=== PATIENT | female | born 1970 | race African-American/Black ===

== ENCOUNTER 2019-04-15 16:33 | Emergency (ER) | payer BC, MEDICAID ==
[~2019-04-15] VITALS: Ht 175.3 cm; Wt 135.7 kg
[~2019-04-15 16:33] MED LIST: ATIVAN; CYMBALTA
[2019-04-15 17:16] VITALS: BP 167/87
[2019-04-15] MEDS ORDERED: CEPH250C16 PO (17:22)
[2019-04-15] MEDS ORDERED: SULF-58 PO (17:22)
[2019-04-15] MEDS ORDERED: PHE25S PO (17:22)
--- NOTE | 2019-04-15 18:20 | NUR ---
PT AMB TO ER CHAIR C
--- NOTE | 2019-04-15 18:31 | NUR ---
Dr. Mendez is evaluating the patient.
[2019-04-15] MEDS ORDERED: VANCOMYCIN 1,000 MG in DEXTROSE 5% 250 ML IV ONE (18:40)
--- NOTE | 2019-04-15 19:17 | NUR ---
ASSESSMENT COMPLETED WITH PATIENT SITTING UP IN CHAIR. BIB SELF REPORTS RIGHT LOWER LEG WOUND AFTER CUTTING HER LEG ON 03-17-2019. STATES THE WOUND HAS JUST PROGRESSIVELY GOTTEN WORSE. PATIENT STATED SHE WAS SEEN AND GIVEN RX FOR TWO ABX BUT STATES SHE HASNT BEEN CONSISTENTLY TAKING THEM BECAUSE THEY WERE MAKING HER NAUSEOUS. WOUND SEEN ON RIGHT LOWER LEG, RED, WARM TO TOUCH. PATIENT REPORTS BURNING PAIN AND ITCHY. NO OTHER SYMPTOMS REPORTED. LUNGS CLEAR. ABD SOFT AND NON-TENDER.
[2019-04-15] MEDS ORDERED: VANCOMYCIN 1,000 MG VIAL ONE (19:49)
[2019-04-15 20:53] VITALS: BP 153/84
--- NOTE | 2019-04-15 20:53 | NUR ---
Patient discharged by Dr Mendez with v/s stable. Written and verbal after care instructions given and explained. Patient alert, oriented and verbalized understanding of instructions. Ambulatory with steady gait. All questions addressed prior to discharge. ID band removed. Patient advised to follow up with PMD. Rx of Promethazine and Keflex given. Patient educated on indication of medication including possible reaction and side effects. Opportunity to ask questions provided and answered.
[2019-04-15] MEDS ORDERED: KETOROLAC 30 MG/ML VIAL ONE (21:56)
== END 2019-04-15 20:53 | disposition home or self-care (01) ==
LOC: MED 16:33
DX: L97.819 Non-pressure chronic ulcer of other part of right lower leg with unspecified severity (principal); K21.9 Gastro-esophageal reflux disease without esophagitis; E66.9 Obesity, unspecified; Z90.49 Acquired absence of other specified parts of digestive tract; Z79.899 Other long term (current) drug therapy; Z68.41 Body mass index [BMI] 40.0-44.9, adult; Z98.890 Other specified postprocedural states
CPT/HCPCS: 36415; 73060; 87040; 96365; 99284; J1885; J3370; Q0092

== ENCOUNTER 2019-05-22 22:25 | Emergency (ER) | payer MEDICAID ==
[~2019-05-22] VITALS: Ht 175.3 cm; Wt 125.4 kg
[~2019-05-22 22:25] MED LIST changes: -ATIVAN; +CEPH250C16 PO; -CYMBALTA; +PHE25S PO; +SULF-58 PO
[2019-05-22 22:31] VITALS: BP 150/78
--- NOTE | 2019-05-22 22:44 | NUR ---
EKG PERFORMED IN TRIAGE ROOM WITH FAMILY MEMBER PRESENT
--- NOTE | 2019-05-22 23:12 | NUR ---
49 YO FEMALE CO LOWER ABD PAIN THAT RADIATES TO LOWER BACK SINCE TODAT 12/16. PT ALSO HAS PAIN IN THE CENTER OF CHEST THAT DOES NOT RADIATE. EKG WAS NSR. VSS STABLE. BS ACTIVE IN ALL 4 QUADS. HEART SOUNDS NORAMAL WITH NO ABNORMAL HEART SOUNDS.
[2019-05-22] MEDS ORDERED: DICYCLOMINE HCL LIQUID 20 MG, ALUMINUM HYD/MAG/SIMETHICONE 30 ML, LIDOCAINE VISCOUS 2% ... PO ONE ×3 (23:20)
[2019-05-22] MEDS ORDERED: NACL 0.9% 1,000 ML IV ONE (23:20)
[2019-05-22] MEDS ORDERED: LIDOCAINE VISCOUS 2% 20 ML UDC ONE (23:23)
[2019-05-22] MEDS ORDERED: ALUMINUM HYD/MAG/SIMETHICONE 30 ML UDC ONE ×2 (23:23→23:24)
[2019-05-22] MEDS ORDERED: DICYCLOMINE HCL LIQUID 10 MG/5 ML UDC ONE ×2 (23:23→23:24)
[2019-05-22 23:35] LABS: BASOPHILS % (AUTO) 0.3 % (0.0-2.0); EOSINOPHILS # (AUTO) 0.1 K/uL (0-0.4); EOSINOPHILS % (AUTO) 0.9 % (0.0-4.0); HEMATOCRIT 35.2 % (36-48); HEMOGLOBIN 11.2 g/dL (12.0-16.0); LYMPHOCYTES # (AUTO) 2.7 K/uL (2.5-16.5); LYMPHOCYTES % (AUTO) 26.2 % (20.5-51.1); MEAN CORPUSCULAR HEMOGLOBIN 25 pg (27-31); MEAN CORPUSCULAR HGB CONC 32 g/dL (33-37); MEAN CORPUSCULAR VOLUME 78.2 fL (80-94); MONOCYTES # (AUTO) 0.8 K/uL (0.8-1.0); MONOCYTES % (AUTO) 7.7 % (1.7-9.3); NEUTROPHILS # (AUTO) 6.6 K/uL (1.8-7.7); NEUTROPHILS % (AUTO) 64.9 % (42.2-75.2); PLATELET COUNT (AUTO) 435 K/uL (140-450); RED CELL DISTRIBUTION WIDTH 16.5 % (11.6-13.7); WHITE BLOOD COUNT (AUTO) 10.1 K/uL (4.8-10.8)
[2019-05-22 23:52] LABS: ALBUMIN 3.8 g/dL (3.4-5.0); ANION GAP 14.6 (8-16); CARBON DIOXIDE 25.7 mmol/L (21-32); POTASSIUM 3.3 mmol/L (3.5-5.1); TOTAL BILIRUBIN 0.3 mg/dL (0.0-1.0)
[2019-05-22 23:59] LABS: PROTHROMBIN TIME 10.4 secs (10.8-13.4)
--- NOTE | 2019-05-23 01:50 | NUR ---
PT LAYING IN BED COMFORTABLE AT THIS TIME. PT IS AWAKE AND ALERT. PAIN IS NOW 5/10. VSS.
--- NOTE | 2019-05-23 02:52 | NUR ---
PT ASLEEP IN BED. AROUSEABLE TO NAME. VSS. WILL CONTINUE TO MONITOR
[2019-05-23 04:38] VITALS: BP 150/78
--- NOTE | 2019-05-23 04:39 | NUR ---
Patient discharged with v/s stable. Written and verbal after care instructions given and explained. Patient alert, oriented and verbalized understanding of instructions. Ambulatory with steady gait. All questions addressed prior to discharge. ID band removed. Patient advised to follow up with PMD. Rx of TRAMADO AND ZOFRAN given. Patient educated on indication of medication including possible reaction and side effects. Opportunity to ask questions provided and answered.
[2019-05-24] MEDS ORDERED: OMEP40EC14 PO (23:15)
[2019-05-24] MEDS ORDERED: SERT100T PO (23:15)
[2019-05-24] MEDS ORDERED: QUET100T PO (23:15)
[2019-05-24] MEDS ORDERED: PHE25S PO (23:15)
== END 2019-05-23 04:38 | disposition home or self-care (01) ==
LOC: MED 22:25
DX: R10.30 Lower abdominal pain, unspecified (principal); R11.2 Nausea with vomiting, unspecified; K21.9 Gastro-esophageal reflux disease without esophagitis; Z79.899 Other long term (current) drug therapy
CPT/HCPCS: 36415; 71045; 74176; 80053; 81025; 83690; 83880; 84484; 85025; 85610; 85730; 87804; 93005; 96360; 96361; 99285; J7030; Q0092

== ENCOUNTER 2019-05-23 22:41 | Emergency (ER) | payer MEDICAID ==
[~2019-05-23] VITALS: Ht 175.3 cm; Wt 125.2 kg
[2019-05-23 22:51] VITALS: BP 148/81
[2019-05-23] MEDS ORDERED: NACL 0.9% 1,000 ML IV ONE (23:17)
[2019-05-23] MEDS ORDERED: MORPHINE SULFATE 10 MG/ML VIAL IVP ONE (23:20)
[2019-05-23] MEDS ORDERED: ONDANSETRON 4 MG/2 ML VIAL IVP ONE ×2 (23:20)
[2019-05-23 23:43] LABS: BASOPHILS % (AUTO) 0.4 % (0.0-2.0); EOSINOPHILS # (AUTO) 0.1 K/uL (0-0.4); EOSINOPHILS % (AUTO) 0.6 % (0.0-4.0); HEMATOCRIT 34.8 % (36-48); HEMOGLOBIN 11.2 g/dL (12.0-16.0); LYMPHOCYTES # (AUTO) 2.1 K/uL (2.5-16.5); LYMPHOCYTES % (AUTO) 20.8 % (20.5-51.1); MEAN CORPUSCULAR HEMOGLOBIN 25 pg (27-31); MEAN CORPUSCULAR HGB CONC 32 g/dL (33-37); MEAN CORPUSCULAR VOLUME 77.7 fL (80-94); MONOCYTES # (AUTO) 0.6 K/uL (0.8-1.0); MONOCYTES % (AUTO) 5.5 % (1.7-9.3); NEUTROPHILS # (AUTO) 7.3 K/uL (1.8-7.7); NEUTROPHILS % (AUTO) 72.7 % (42.2-75.2); PLATELET COUNT (AUTO) 418 K/uL (140-450); RED BLOOD CELL COUNT(AUTO) 4.48 MIL/uL (4.20-5.40); RED CELL DISTRIBUTION WIDTH 16.4 % (11.6-13.7); WHITE BLOOD COUNT (AUTO) 10.1 K/uL (4.8-10.8)
[2019-05-23] MEDS ORDERED: diphenhydrAMINE 50 MG/ML VIAL IVP ONE (23:50)
[2019-05-23] MEDS ORDERED: METOCLOPRAMIDE 10 MG/2 ML INJ VIAL IVP ONE (23:50)
[2019-05-24 00:19] LABS: ALBUMIN 3.8 g/dL (3.4-5.0); ANION GAP 17.5 (8-16); CARBON DIOXIDE 24.7 mmol/L (21-32); POTASSIUM 3.2 mmol/L (3.5-5.1); TOTAL BILIRUBIN 0.3 mg/dL (0.0-1.0)
[2019-05-24 00:22] LABS: CREATININE 0.9 mg/dL (0.6-1.3)
[2019-05-24 00:52] LABS: APPEARANCE,URINE SL CLOUDY (CLEAR); BILIRUBIN,URINE NEGATIVE (NEGATIVE); BLOOD, URINE NEGATIVE (NEGATIVE); COLOR,URINE YELLOW (YELLOW); LEUKOCYTE ESTERASE ,URINE NEGATIVE (NEGATIVE); NITRITE, URINE NEGATIVE (NEGATIVE); PH,URINE 8.5 (5.0-9.0); UGLUCOSE NEGATIVE (NEGATIVE)
[2019-05-24] MEDS ORDERED: POTASSIUM CHLORIDE 10 MEQ TABER PO ONE ×2 (02:35→02:57)
[2019-05-24 03:45] VITALS: BP 121/78
[2019-05-24] MEDS ORDERED: PHE25S PO (23:15)
[2019-05-24] MEDS ORDERED: QUET100T PO (23:15)
[2019-05-24] MEDS ORDERED: OMEP40EC14 PO (23:15)
[2019-05-24] MEDS ORDERED: SERT100T PO (23:15)
== END 2019-05-24 03:45 | disposition home or self-care (01) ==
LOC: MED 22:41
DX: R10.84 Generalized abdominal pain (principal); R11.2 Nausea with vomiting, unspecified; R19.7 Diarrhea, unspecified; M54.5 Low back pain; G21.9 Secondary parkinsonism, unspecified; Z90.49 Acquired absence of other specified parts of digestive tract; Z79.899 Other long term (current) drug therapy
CPT/HCPCS: 36415; 80053; 81003; 81025; 83690; 85025; 96361; 96374; 96375; 99284; J1200; J2270; J2765; J7030; 81002; J2405

== ENCOUNTER 2019-05-24 15:25 | Inpatient (IN) | payer MEDICAID ==
[~2019-05-24] VITALS: Ht 175.3 cm; Wt 58.1 kg
[2019-05-24 15:32] VITALS: BP 90/56
--- NOTE | 2019-05-24 15:45 | NUR ---
DR AJ EVALUATING PT AT BEDSIDE
--- NOTE | 2019-05-24 15:48 | NUR ---
49 Y/O FEMALE C/O ABD PAIN WITH N/V/D X 3 DAYS. PT STATES SHE HAS COME TO ER MULTIPLE DAYS IN A ROW FOR SAME REASON. 10/10 SHARP ABD PAIN. ABD SOFT, ROUND, AND TENDER TO PALPATION. STATES 7 EPISODES OF VOMITING AND 5 EPISODES OF DIARRHEA TODAY. DENIES FEVER AND URINARY SYMPTOMS. RR EVEN AND UNLABORED, PT TEARFUL IN BED
[2019-05-24] MEDS ORDERED: ONDANSETRON 4 MG/2 ML VIAL IVP ONE (15:50)
[2019-05-24] MEDS ORDERED: MORPHINE SULFATE 4 MG/ML SYR IVP ONE ×2 (15:50→16:45)
[2019-05-24] MEDS ORDERED: NACL 0.9% 1,000 ML IV ONE ×2 (15:50→18:05)
[2019-05-24] MEDS ORDERED: METOCLOPRAMIDE 10 MG/2 ML INJ VIAL IVP ONE ×2 (16:20→23:15)
[2019-05-24 16:27] LABS: BASOPHILS # (AUTO) 0.1 K/uL (0.00-0.22); BASOPHILS % (AUTO) 0.8 % (0.0-2.0); EOSINOPHILS % (AUTO) 0.2 % (0.0-4.0); HEMATOCRIT 34.8 % (36-48); LYMPHOCYTES # (AUTO) 1.4 K/uL (2.5-16.5); LYMPHOCYTES % (AUTO) 13.1 % (20.5-51.1); MEAN CORPUSCULAR HEMOGLOBIN 25 pg (27-31); MEAN CORPUSCULAR HGB CONC 32 g/dL (33-37); MEAN CORPUSCULAR VOLUME 77.7 fL (80-94); MONOCYTES # (AUTO) 0.4 K/uL (0.8-1.0); MONOCYTES % (AUTO) 4.2 % (1.7-9.3); NEUTROPHILS # (AUTO) 8.7 K/uL (1.8-7.7); NEUTROPHILS % (AUTO) 81.7 % (42.2-75.2); PLATELET COUNT (AUTO) 431 K/uL (140-450); RED BLOOD CELL COUNT(AUTO) 4.48 MIL/uL (4.20-5.40); RED CELL DISTRIBUTION WIDTH 16.7 % (11.6-13.7); WHITE BLOOD COUNT (AUTO) 10.6 K/uL (4.8-10.8)
[2019-05-24 16:30] LABS: APPEARANCE,URINE CLEAR (CLEAR); BILIRUBIN,URINE NEGATIVE (NEGATIVE); BLOOD, URINE NEGATIVE (NEGATIVE); COLOR,URINE YELLOW (YELLOW); LEUKOCYTE ESTERASE ,URINE NEGATIVE (NEGATIVE); NITRITE, URINE NEGATIVE (NEGATIVE); UGLUCOSE NEGATIVE (NEGATIVE)
[2019-05-24 16:39] LABS: BARBITURATE, URINE NEGATIVE ng/ml (NEG <=200); BENZODIAZEPINE, URINE NEGATIVE ng/mL (NEG <=200); CANNABINOID, URINE NEGATIVE ng/mL (NEG <=50); COCAINE, URINE NEGATIVE ng/mL (NEG <=300); PHENCYCLIDINE SCREEN,URINE NEGATIVE ng/mL (NEG <=25)
[2019-05-24 16:40] LABS: OPIATE, URINE POSITIVE ng/mL (NEG <=2000)
[2019-05-24 16:57] LABS: ALBUMIN 3.8 g/dL (3.4-5.0); CARBON DIOXIDE 25.2 mmol/L (21-32); CREATININE 0.9 mg/dL (0.6-1.3); POTASSIUM 3.2 mmol/L (3.5-5.1); TOTAL BILIRUBIN 0.4 mg/dL (0.0-1.0)
--- NOTE | 2019-05-24 17:05 | NUR ---
pt. in bed laying down. crying and reports 10/10 pain. pain medications administered. will continue to monitor pt. pain level
--- NOTE | 2019-05-24 17:12 | NUR ---
PT TO RADIOLOGY VIA
[2019-05-24 17:15] LABS: LIPASE 130 U/L (73-393)
--- NOTE | 2019-05-24 17:37 | NUR ---
pt ambulated to bathroom with steady gait.
--- NOTE | 2019-05-24 17:41 | NUR ---
IV site on R AC patent and flushed.
--- NOTE | 2019-05-24 17:54 | NUR ---
Pt appears calm and relaxed. reports of 6/10 pain, tolerable. pt. in bed resting comfortably, bed in lowest position and locked, bed rails up x 2. HOB elevated.
[2019-05-24] MEDS ORDERED: PIPERACILLIN/TAZOBACTAM 3.375 GM VIAL IV ONE (18:05)
[2019-05-24] MEDS ORDERED: PIPERACILLIN/TAZOBACTAM 3.375 GM in DEXTROSE 5% 50 ML IV ONE (18:05)
[2019-05-24] MEDS ORDERED: IBUPROFEN 600 MG TAB PO ONE (18:05)
[2019-05-24] MEDS ORDERED: NACL 0.9% 1,000 ML IV SCH (18:26)
[2019-05-24] MEDS ORDERED: ACETAMINOPHEN 325 MG TAB PO PRN (18:30)
[2019-05-24] MEDS ORDERED: HYDROcodone/APAP 7.5/325 MG 1 TAB PO PRN (18:30)
[2019-05-24] MEDS ORDERED: AZITHROMYCIN 250 MG TAB PO SCH (18:55)
[2019-05-24] MEDS ORDERED: POTASSIUM CHLORIDE 10 MEQ TABER PO SCH (18:56)
--- NOTE | 2019-05-24 19:00 | NUR ---
PT ARRIVED UNIT VIA [facility] ACCOMPANIED BY ER NURSES SANDIE AND NARESH. TRANSFERRED PT FROM [facility] TO BED AND POSITIONED COMFORTABLY. TELE MONITOR ATTACHED.
--- NOTE | 2019-05-24 19:07 | NUR ---
ENDORSED PT AT BEDSIDE TO PEST CONTROL SERVICE SALES AGENT NURSE SUGAR FOR CONTINUITY OF CARE. DRILLING FOREMAN IS TAKING VITAL SIGNS AT THIS TIME. NO SIGNS OF DISTRESS NOTED.
--- NOTE | 2019-05-24 19:07 | NUR ---
RECEIVED PATIENT IN STABLE CONDITION FROM AM SHIFT NURSE FOR CONTINUITY OF CARE. RESPIRATIONS EVEN, UNLABORED. IV SITE NOTED TO RIGHT AC 18G. SKIN ASSESSMENT COMPLETED. SKIN IS INTACT. MRSA SCREEN COMPLETED. ORIENTED PATIENT TO ROOM, STAFF AND CALL LIGHT. NO S/SX ACUTE DISTRESS. CALL LIGHT WITHIN REACH. WILL CONTINUE TO MONITOR.
--- NOTE | 2019-05-24 19:07 | NUR ---
Patient will be admitted to care of DR. TENORIO. Admited to TELE. Will go to room 119B. Belongings list completed. VSS. pt reports of 8/10 pain. Report to RAYSA DHILLON.
[2019-05-24 19:25] LABS: PROTHROMBIN TIME 10.8 secs (10.8-13.4)
[2019-05-24 19:28] LABS: FREE T4 (FREE THYROXINE) 1.05 ng/dL (0.76-1.46); MAGNESIUM 1.8 mg/dL (1.8-2.4); THYROID STIMULATING HORMONE 0.37 uIU/mL (0.34-3.74)
[2019-05-24 19:33] LABS: PHOSPHORUS 0.9 mg/dL (2.5-4.9)
[2019-05-24] MEDS ORDERED: SODIUM PHOS / POTASSIUM PHOS 1 PKT PDR PO ONE (19:45)
[2019-05-24] MEDS: ONDANSETRON 4 MG/2 ML VIAL IVP PRN (20:22)
[2019-05-24] MEDS: MORPHINE SULFATE 2 MG/ML SYR IVP PRN (20:22)
--- NOTE | 2019-05-24 20:22 | NUR ---
PATIENT C/O ACHING ABDOMINAL PAIN 11/16. MEDICATED ORDERED. WILL CONTINUE TO MONITOR.
[2019-05-24] MEDS: DEXT 5% /NACL 0.9% 1,000 ML IV SCH ×2 (20:25→20:47)
[2019-05-24] MEDS: DOCUSATE SODIUM 100 MG GELCAP PO SCH (20:47)
[2019-05-24] MEDS ORDERED: MORPHINE SULFATE 2 MG/ML SYR IVP ONE (21:05)
--- NOTE | 2019-05-24 21:22 | NUR ---
REASSESSED PAIN LEVEL, NO RELIEF. WILL MEDICATED FOR PAIN WITH MORPHINE X1 ORDERED. WILL CONTINUE TO MONITOR.
[2019-05-24] MEDS ORDERED: ALBUTEROL SULFATE/IPRATROPIU 3 ML SOL IH PRN (22:25)
--- NOTE | 2019-05-24 22:30 | NUR ---
REASSESSED PAIN LEVEL AT 5/10, TOLERABLE AT THIS TIME. CALL LIGHT WITHIN REACH. WILL CONTINUE TO MONITOR.
[2019-05-24] MEDS ORDERED: LIDOCAINE VISCOUS 2% 20 ML UDC PO ONE (23:15)
[2019-05-24] MEDS ORDERED: OMEP40EC14 PO (23:15)
[2019-05-24] MEDS ORDERED: DICYCLOMINE HCL LIQUID 10 MG/5 ML UDC PO ONE (23:15)
[2019-05-24] MEDS ORDERED: PHE25S PO (23:15)
[2019-05-24] MEDS ORDERED: diphenhydrAMINE 50 MG/ML VIAL IVP ONE (23:15)
[2019-05-24] MEDS ORDERED: QUET100T PO (23:15)
[2019-05-24] MEDS ORDERED: SERT100T PO (23:15)
[2019-05-24] MEDS ORDERED: ALUMINUM HYD/MAG/SIMETHICONE 30 ML UDC PO ONE (23:15)
--- NOTE | 2019-05-24 23:34 | NUR ---
PATIENT CONTINUES TO COMPLAIN OF ABDOMINAL PAIN. MD MADE AWARE WITH NEW ORDERS. CALL LIGHT WITHIN REACH. WILL CONTINUE TO MONITOR.
[2019-05-24] MEDS ORDERED: SODIUM PHOSPHATE 15 MMOLE in NACL 0.9% 250 ML IV ONE (23:45)
[2019-05-25] VITALS: BP 144/85
[2019-05-25] MEDS ORDERED: LEVOFLOXACIN 750 MG/D5W PREMIX 150 ML IV SCH
[2019-05-25] MEDS: ONDANSETRON 4 MG/2 ML VIAL IVP PRN ×5 (01:30→21:10)
[2019-05-25] MEDS: MORPHINE SULFATE 2 MG/ML SYR IVP PRN ×3 (01:30→09:23)
--- NOTE | 2019-05-25 01:30 | NUR ---
PATIENT C/O NAUSEA AND ACHING ABDOMINAL PAIN 11/16. MEDICATED ORDERED. CALL LIGHT WITHIN REACH. WILL CONTINUE TO MONITOR.
--- NOTE | 2019-05-25 02:30 | NUR ---
PATIENT ASLEEP IN BED. NO S/SX ACUTE DISTRESS. CALL LIGHT WITHIN REACH. WILL CONTINUE TO MONITOR.
[2019-05-25] MEDS ORDERED: SCOPOLAMINE 1.5 MG/72 HR PATCH TD SCH (03:20)
[2019-05-25 04:00] VITALS: BP 136/51
--- NOTE | 2019-05-25 05:08 | NUR ---
PATIENT C/O ACHING ABDOMINAL PAIN 11/16. MEDICATED ORDERED. PROVIDED EDUCATION REGARDING PAIN MANAGEMENT. PATIENT VERBALIZED UNDERSTANDING BUT NEEDS REINFORCEMENT. CALL LIGHT WITHIN REACH. WILL CONTINUE TO MONITOR. Addendum: 05/25/19 at 0510 by Zoila Segura RN AMEND TIME FROM 0510 TO 429.
[2019-05-25] MEDS ORDERED: ALBUTEROL SULFATE/IPRATROPIU 3 ML SOL IH SCH ×2 (06:00→07:17)
[2019-05-25 07:05] LABS: BASOPHILS % (AUTO) 0.4 % (0.0-2.0); EOSINOPHILS % (AUTO) 0.3 % (0.0-4.0); HEMATOCRIT 32.7 % (36-48); HEMOGLOBIN 10.4 g/dL (12.0-16.0); LYMPHOCYTES # (AUTO) 2.5 K/uL (2.5-16.5); LYMPHOCYTES % (AUTO) 22.9 % (20.5-51.1); MEAN CORPUSCULAR HEMOGLOBIN 25 pg (27-31); MEAN CORPUSCULAR HGB CONC 32 g/dL (33-37); MEAN CORPUSCULAR VOLUME 78.1 fL (80-94); MONOCYTES # (AUTO) 0.8 K/uL (0.8-1.0); NEUTROPHILS # (AUTO) 7.6 K/uL (1.8-7.7); NEUTROPHILS % (AUTO) 69.4 % (42.2-75.2); PLATELET COUNT (AUTO) 413 K/uL (140-450); RED BLOOD CELL COUNT(AUTO) 4.18 MIL/uL (4.20-5.40); RED CELL DISTRIBUTION WIDTH 16.5 % (11.6-13.7)
[2019-05-25 07:09] LABS: MAGNESIUM 1.8 mg/dL (1.8-2.4); PHOSPHORUS 3.4 mg/dL (2.5-4.9)
[2019-05-25 07:10] LABS: ANION GAP 15.3 (8-16); CARBON DIOXIDE 24.3 mmol/L (21-32); CREATININE 0.9 mg/dL (0.6-1.3); POTASSIUM 3.6 mmol/L (3.5-5.1)
--- NOTE | 2019-05-25 07:14 | NUR ---
ENDORSED PATIENT IN STABLE CONDITION TO AM SHIFT NURSE FOR CONTINUITY OF CARE.
--- NOTE | 2019-05-25 07:24 | NUR ---
RECEIVED REPORT FROM ASSESSMENT SERVICES MANAGER FOR CONTINUITY OF CARE. PT IN STABLE CONDITION. WILL ROUND FREQUENTLY THROUGHOUT THE SHIFT. BOARD UPDATED. BED IN LOW POSITION, CALL LIGHT WITHIN REACH.
[2019-05-25 08:00] VITALS: BP 127/66
--- NOTE | 2019-05-25 08:26 | NUR ---
PATIENT HAS BEEN SCREENED AND CATEGORIZED HIGH NUTRITION RISK. PATIENT WILL BE SEEN WITHIN 1-2 DAYS OF ADMISSION. 05/25/19-05/26/[address]
[2019-05-25 08:35] LABS: CHOL/HDL RATIO 6.6 (1-4.5)
[2019-05-25] MEDS: DOCUSATE SODIUM 100 MG GELCAP PO SCH (09:00)
[2019-05-25] MEDS: SODIUM FERRIC GLUCONATE 125 MG in NACL 0.9% 100 ML IV SCH (09:00)
--- NOTE | 2019-05-25 09:41 | NUR ---
PT RESTING IN BED. ALL NEEDS MET. WILL CONTINUE TO ROUND FREQUENTLY ON PT.
[2019-05-25] MEDS: SUCRALFATE 1 GM TAB PO SCH ×4 (10:50→21:00)
[2019-05-25] MEDS ORDERED: PANTOPRAZOLE 40 MG INJ VIAL IVP SCH (11:00)
[2019-05-25] MEDS ORDERED: SERTRALINE 50 MG TAB PO SCH ×2 (11:05→12:15)
--- NOTE | 2019-05-25 11:34 | NUR ---
PT TO GO TO OR FOR EGD PROCEDURE WITH . PT COMPLAINING OF PAIN AND NAUSEA EVEN THOUGH MEDS WERE GIVEN FOR RELIEF. AWARE AND SAID SHE WILL HAVE MEDS IN OR FOR RELIEF OF SYMPTOMS. PT IN STABLE CONDITION.
[2019-05-25] MEDS ORDERED: PIPERACILLIN/TAZOBACTAM 3.375 GM in DEXTROSE 5% 50 ML IV SCH (12:00)
[2019-05-25] MEDS ORDERED: LORazepam 2 MG/ML VIAL IM/IVP SCH (12:40)
--- NOTE | 2019-05-25 13:40 | NUR ---
PT ASLEEP. ALL NEEDS MET. WILL CONTINUE TO ROUND ON PT.
--- NOTE | 2019-05-25 13:48 | NUR ---
05/25/2019 RD INITIAL ASSESSMENT COMPLETED PLEASE REFER TO NUTRITION ASSESSMENT UNDER CARE ACTIVITY FOR ESTIMATED NUTRITIONAL NEEDS. ADVANCE DIET MEDICALLY APPROPRIATE ADD ENSURE CLEAR TO CURRENT DIET FOR ADDITIONAL NUTRITION SUPPORT RD TO FOLLOW-UP IN 2-3 DAYS PATIENT IS HIGH RISK. MAURI STONE, RD
[2019-05-25] MEDS ORDERED: diphenhydrAMINE 50 MG/ML VIAL ONE (14:01)
[2019-05-25] MEDS ORDERED: MIDAZOLAM 2 MG/2 ML VIAL ONE (14:02)
[2019-05-25] MEDS ORDERED: fentaNYL 0.05 MG/ML VIAL ONE (14:02)
[2019-05-25] MEDS ORDERED: MAGNESIUM CITRATE 300 ML BTL PO SCH ×3 (14:35→15:00)
[2019-05-25] MEDS ORDERED: BOWEL EVACUANT DRINK 4,000 ML PDS PO SCH (15:00)
[2019-05-25] MEDS ORDERED: diphenhydrAMINE 50 MG/ML VIAL IVP ONE (15:05)
[2019-05-25] MEDS ORDERED: MIDAZOLAM 2 MG/2 ML VIAL IVP ONE (15:05)
[2019-05-25] MEDS ORDERED: ONDANSETRON 4 MG/2 ML VIAL IVP ONE (15:05)
[2019-05-25] MEDS ORDERED: fentaNYL 0.05 MG/ML VIAL IVP ONE (15:05)
--- NOTE | 2019-05-25 15:22 | NUR ---
PT ASLEEP. NO SIGNS OF DISTRESS OR SOB NOTED. WILL CONTINUE TO ROUND ON PT.
[2019-05-25 16:00] VITALS: BP 139/77
--- NOTE | 2019-05-25 16:45 | NUR ---
PT REFUSING ALL PO MEDS AT THIS TIME. WILL NOTIFY
[2019-05-25] MEDS: LACTULOSE 20 GM/30 ML UDC PO SCH ×2 (17:00→21:00)
[2019-05-25] MEDS: SENNA 8.6 MG TAB PO SCH ×2 (17:00→21:00)
--- NOTE | 2019-05-25 18:21 | NUR ---
REGLAN 2100 DOSE GIVEN EARLY PER 'S ORDERS. PT WAS TOLD SHE WOULD BE GIVEN REGLAN EARLY IN ORDER FOR HER TO BEGIN HER BOWEL PREP MEDICATIONS. ONCE REGLAN WAS GIVEN PT AGAIN REFUSED ALL PO MEDS. CITROMA AND GOLYTELY AT BEDSIDE UNTOUCHED BY PT BECAUSE PT REFUSING ALL PO MEDS UNTIL NAUSEA IS RESOLVED. PT GIVEN 12MG OF ZOFRAN, SCOPOLAMINE PATCH, AND REGLAN ALL ON MY SHIFT W/O NAUSEA RELIEF PER PT. NO VOMITING NOTED. WILL NOTIFY
[2019-05-25] MEDS ORDERED: METOCLOPRAMIDE 10 MG/2 ML INJ VIAL ONE (18:44)
[2019-05-25] MEDS: METOCLOPRAMIDE 10 MG/2 ML INJ VIAL IVP SCH (18:47)
[2019-05-25] MEDS ORDERED: AZITHROMYCIN 250 MG TAB PO SCH (19:00)
--- NOTE | 2019-05-25 19:12 | NUR ---
NOTIFIED OF PT REFUSING ALL PO MEDS. PER MD, POMOLOGY TEACHER RN TO GIVE MEDS FOR NAUSEA AND TRY AGAIN TO GIVE BOWEL PREP MEDS.
--- NOTE | 2019-05-25 19:24 | NUR ---
ENDORSED PT TO DATA ENTRY SPECIALIST RN FOR CONTINUITY OF CARE. PT IN STABLE CONDITION AT THIS TIME.
--- NOTE | 2019-05-25 19:25 | NUR ---
RECEIVED BEDSIDE REPORT FROM AM SHIFT NURSE. PATIENT IS SITTING AT THE SIDE OF THE BED, AWAKE AND ALERT. NO SOB OR DISTRESS NOTED. ON ROOM AIR. IV ACCESS ON RIGHT AC 18 GAUGE, PATENT, INTACT AND INFUSING WELL. SKIN IS INTACT. PATIENT IS AMBULATORY. INITIAL ASSESSMENT DONE. BED IN LOW, SAFETY MEASURES IN PLACE. CALL LIGHT WITHIN PATIENT REACH. WILL CONTINUE TO MONITOR PATIENT.
[2019-05-25] MEDS ORDERED: HYDROcodone/APAP 10/325 MG 1 TAB TAB PO PRN (20:30)
[2019-05-25] MEDS ORDERED: QUEtiapine FUMARATE 100 MG TAB PO SCH (21:00)
[2019-05-25] MEDS ORDERED: QUEtiapine FUMARATE 25 MG TAB PO SCH (21:00)
[2019-05-25] MEDS: POLYETHYLENE GLYCOL 17 GM/PKT PO SCH (21:00)
[2019-05-25] MEDS ORDERED: AMITRIPTYLINE 25 MG TAB PO SCH (21:00)
[2019-05-25] MEDS: HYDROcodone/APAP 10/325 MG 1 TAB TAB PO PRN (21:10)
--- NOTE | 2019-05-25 21:10 | NUR ---
PRN ZOFRAN GIVEN PER PATIENT REQUEST FOR NAUSEA AND PRN NORCO GIVEN FOR SEVERE PAIN. WILL CONTINUE TO MONITOR PATIENT AT THIS TIME.
--- NOTE | 2019-05-25 22:09 | NUR ---
PATIENT REFUSED MEDICATIONS SCHEDULED AT 2100. MD MADE AWARE. EDUCATED PATIENT ON BENEFITS AND REASONS FOR TAKING THE MEDICATION BUT PATIENT STILL REFUSES.
--- NOTE | 2019-05-25 22:15 | NUR ---
SPOKE WITH MD, PATIENT REFUSES TO DRINK BOWEL PREP. SAID WE WILL INFORM AND FOLLOW UP WITH IN THE MORNING.
[2019-05-25] MEDS ORDERED: DICYCLOMINE HCL LIQUID 10 MG/5 ML UDC PO ONE (23:25)
[2019-05-25] MEDS ORDERED: LIDOCAINE VISCOUS 2% 20 ML UDC PO ONE (23:25)
[2019-05-25] MEDS ORDERED: ALUMINUM HYD/MAG/SIMETHICONE 30 ML UDC PO ONE (23:25)
[2019-05-25] MEDS: LORazepam 0.5 MG TAB PO PRN (23:43)
--- NOTE | 2019-05-25 23:43 | NUR ---
PRN ATIVAN GIVEN AT THIS TIME PER PATIENT REQUEST FOR RESTLESSNESS AND ANXIETY. WILL CONTINUE TO MONITOR PATIENT.
[2019-05-26 00:10] VITALS: BP 155/69
[2019-05-26] MEDS ORDERED: DICYCLOMINE HCL LIQUID 10 MG/5 ML UDC ONE (01:47)
[2019-05-26] MEDS ORDERED: ALUMINUM HYD/MAG/SIMETHICONE 30 ML UDC ONE (01:47)
[2019-05-26] MEDS ORDERED: LIDOCAINE VISCOUS 2% 20 ML UDC ONE (01:47)
[2019-05-26] MEDS: ONDANSETRON 4 MG/2 ML VIAL IVP PRN ×3 (01:50→10:56)
--- NOTE | 2019-05-26 01:50 | NUR ---
PRN ZOFRAN GIVEN AT THIS TIME PER PATIENT REQUEST FOR NAUSEA. WILL CONTINUE TO MONITOR PATIENT.
--- NOTE | 2019-05-26 03:07 | NUR ---
ROUNDS DONE. VISIBLE CHEST RISE AND FALL NOTED. CALL LIGHT WITHIN PATIENT REACH. WILL CONTINUE TO MONITOR PATIENT.
[2019-05-26] MEDS: HYDROcodone/APAP 10/325 MG 1 TAB TAB PO PRN ×2 (04:11→12:06)
[2019-05-26] MEDS: METOCLOPRAMIDE 10 MG/2 ML INJ VIAL IVP SCH ×2 (04:11→12:05)
--- NOTE | 2019-05-26 04:11 | NUR ---
PRN NORCO GIVEN AT THIS TIME PER PATIENT REQUEST FOR SEVERE PAIN. WILL CONTINUE TO MONITOR PATIENT.
--- NOTE | 2019-05-26 06:22 | NUR ---
PATIENT IN STABLE CONDITION. VISIBLE CHEST RISE AND FALL NOTED. NO DISTRESS NOTED. CALL LIGHT WITHIN PATIENT REACH. WILL ENDORSE TO AM SHIFT NURSE FOR CONTINUITY OF CARE.
--- NOTE | 2019-05-26 06:42 | NUR ---
PRN ZOFRAN GIVEN AT THIS TIME PER PATIENT REQUEST FOR NAUSEA. WILL CONTINUE TO MONITOR PATIENT.
--- NOTE | 2019-05-26 07:26 | NUR ---
RECEIVED PATIENT FROM BUNDLE TIER NURSE FOR CONTINUITY OF CARE. PATIENT IS CURRENTLY SLEEPING AT THIS TIME. NO SIGNS OF DISTRESS NOTED. RESPIRATIONS EVEN AND UNLABORED, ON ROOM AIR. VISIBLE CHEST RISE NOTED. MED-SURG. ABDOMEN ROUND, SOFT, AND NONTENDER. NO SIGNS OF N/V NOTED. PER DENIZ BUCKLEY NURSE, PATIENT REFUSED HER PO AND BOWEL PREP FOR COLONOSCOPY. SKIN WARM, DRY, AND INTACT. IV IN THE RIGHT AC G18, SALINE LOCK. IV FLUSHING WELL AND INTACT. PATIENT IS AMBULATORY, FULL CODE, STANDARD ISOLATION, NPO EXCEPT MEDICATIONS, AND UNIVERSAL PRECAUTION. BED IN LOW POSITION. CALL LIGHT IS WITHIN REACH. WILL CONTINUE TO MONITOR.
[2019-05-26 08:00] VITALS: BP 142/63
[2019-05-26 08:10] LABS: FOLIC ACID 7.4 ng/mL (>3.0)
--- NOTE | 2019-05-26 08:36 | NUR ---
PATIENT C/O NAUSEA. DR. LOUIS IS AWARE. STATED TO GIVE THE REGLAN NOW AND SHE WILL LET DR. HILL AWARE.
[2019-05-26] MEDS: LORazepam 0.5 MG TAB PO PRN (08:54)
[2019-05-26] MEDS: LACTULOSE 20 GM/30 ML UDC PO SCH (08:59)
[2019-05-26] MEDS: SENNA 8.6 MG TAB PO SCH (08:59)
[2019-05-26] MEDS: SODIUM FERRIC GLUCONATE 125 MG in NACL 0.9% 100 ML IV SCH (08:59)
[2019-05-26] MEDS: SUCRALFATE 1 GM TAB PO SCH (08:59)
[2019-05-26] MEDS: POLYETHYLENE GLYCOL 17 GM/PKT PO SCH (08:59)
[2019-05-26] MEDS ORDERED: SERTRALINE 50 MG TAB PO SCH ×2 (09:00)
[2019-05-26] MEDS ORDERED: LACTOBACILLUS RHAMNOSUS GG 1 EACH CAP PO SCH (09:00)
[2019-05-26] MEDS ORDERED: METOCLOPRAMIDE 10 MG/2 ML INJ VIAL IVP SCH (09:00)
--- NOTE | 2019-05-26 09:00 | NUR ---
GIVEN ATIVAN FOR ANXIETY AND REGLAN FOR NAUSEA. PATIENT REFUSED MORNING MEDICATIONS. HANG FERRLECIT VIA IVPB. EXPLAINED TO PATIENT MEDICATIONS AND WHY SHE NEEDS THEM. PATIENT STILL REFUSED. BED IN LOW POSITION. CALL LIGHT IS WITHIN REACH. WILL CONTINUE TO MONITOR.
[2019-05-26 10:10] VITALS: BP 142/63
--- NOTE | 2019-05-26 11:03 | NUR ---
PT IS ALERT AND AWAKE. PT STATES THAT SHE FEELS NAUSEOUS AND WOULD LIKE SOME ZOFRAN. MEDICATION WAS ADMINISTERED PER ORDER. SAFETY MEASURES IN PLACE, CALL LIGHT WITHIN REACH, AND WILL CONTINUE TO MONITOR.
[2019-05-26] MEDS ORDERED: AMOX-999 PO (11:35)
[2019-05-26] MEDS ORDERED: LACT-81 PO (11:35)
[2019-05-26] MEDS ORDERED: PANT40EC PO (11:40)
[2019-05-26] MEDS ORDERED: SUCR1TAB35 PO (11:43)
[2019-05-26] MEDS ORDERED: METO-486 PO (11:43)
[2019-05-26] MEDS ORDERED: ELA25 PO (11:44)
--- NOTE | 2019-05-26 12:12 | NUR ---
PT IS ALERT, AWAKE, AND REPORTS ABDOMINAL AND LOWER BACK PAIN OF AN 8 OUT OF 10. ALSO STATES THAT SHE IS NAUSEATED ON A SCALE OF 10 OUT OF 10. MEDICATION WAS ADMINISTERED PER ORDER AND TOLERATED WELL. NO OTHER CHIEF COMPLAINTS AT THIS TIME. SAFETY MEASURES IN PLACE, CALL LIGHT WITHIN REACH, AND WILL CONTINUE TO MONITOR.
--- NOTE | 2019-05-26 12:35 | NUR ---
GIVEN DISCHARGE INSTRUCTIONS: EXPLAINED THAT THE DOCTOR IS CONTINUING HER HOME MEDICATIONS. 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 EXPLAINED THAT SHE HAS TO MAKE AN APPOINTMENT WITH [facility]. EXPLAINED THAT IF SYMPTOMS WORSENS, CALL 911 OR GO TO ED RIGHT AWAY. PATIENT VERBALIZED UNDERSTANDING. NO FURTHER QUESTIONS. Addendum: 05/26/19 at 1246 by Princess Elina Cho RN PATIENT SIGNED DISCHARGE PAPERWORK
--- NOTE | 2019-05-26 12:38 | NUR ---
DISCONTINUED IV AND ID BAND. PATIENT REFUSED PNA AND FLU VACCINES.
--- NOTE | 2019-05-26 12:43 | NUR ---
DISCHARGED PATIENT VIA WHEELCHAIR. PATIENT IS IN STABLE CONDITION
[2019-05-26] MEDS ORDERED: FERR324T11 PO (16:39)
[2019-05-26] MEDS ORDERED: ASCO500T45 PO (16:39)
== END 2019-05-26 12:45 | disposition home or self-care (01) | DRG 137 ==
LOC: MED 15:25 → MTU 18:26
PROVIDERS: ADMIT General Practice; ATTEND General Practice
PROC: 0DB68ZX Excision of Stomach, Via Natural or Artificial Opening Endoscopic, Diagnostic (ICD-10-PCS; 2019-05-25)
PROC: 0DB98ZX Excision of Duodenum, Via Natural or Artificial Opening Endoscopic, Diagnostic (ICD-10-PCS; principal; 2019-05-25 13:50)
DX: J69.0 Pneumonitis due to inhalation of food and vomit (principal); E66.01 Morbid (severe) obesity due to excess calories; K29.70 Gastritis, unspecified, without bleeding; E83.39 Other disorders of phosphorus metabolism; D50.9 Iron deficiency anemia, unspecified; F41.9 Anxiety disorder, unspecified; K44.9 Diaphragmatic hernia without obstruction or gangrene; K58.9 Irritable bowel syndrome, unspecified; K21.9 Gastro-esophageal reflux disease without esophagitis; Z90.49 Acquired absence of other specified parts of digestive tract; F32.9 Major depressive disorder, single episode, unspecified; G47.00 Insomnia, unspecified; E87.6 Hypokalemia; Z68.41 Body mass index [BMI] 40.0-44.9, adult; Z71.3 Dietary counseling and surveillance; Z98.84 Bariatric surgery status
CPT/HCPCS: 36415; 71045; 80048; 80053; 80305; 81003; 81025; 82150; 82607; 82728; 82746; 83036; 83540; 83605; 83690; 83735; 83880; 84100; 84439; 84443; 84484; 85025; 85045; 85610; 85730; 86677; 87040; 87081; 87086; 87804; 88305; 93005; 96361; 96365; 96375; 96376; 99285; C9113; G0482; J0696; J1200; J1956; J2060; J2250; J2270; J2405; J2543; J2765; J2916; J3010; J7030; J7042; J7060; Q0092; Q9967